=== PATIENT | male | born 1985 | race Caucasian/White ===

== ENCOUNTER 2017-03-31 02:12 | Emergency (ER) | payer MEDICAID ==
[2017-03-31 02:32] VITALS: BP 121/75
[2017-03-31] MEDS ORDERED: LIDOCAINE 1% 2 ML VIAL ONE (03:44)
[2017-03-31] MEDS ORDERED: BUPIVACAINE 0.5% PF 30 ML VIAL ONE (04:02)
--- NOTE | 2017-03-31 04:16 | ED Physician Documentation ---
PD HPI LOWER EXT INJURY - Stated complaint Stated Complaint: RT LEG LACERATION - Chief complaint Chief Complaint: Ext Problem - History obtained from History obtained from: Patient - History of Present Illness PD HPI LOW EXT INJURY LOCATION: Right, Lower leg Type of injury: Laceration Where injury occurred: Home Timing - onset: Today Timing - duration: Hours Timing - details: Abrupt onset, Still present Improved by: Rest, Immobilization Worsened by: Moving, Palpating Associated symptoms: No: Weakness, Numbness, Tingling Contributing factors: No: Anticoagulated Similar symptoms before: Has not had sx before Recently seen: Not recently seen - Additional information Additional information: 31-year-old male was using a machete today when he lacerated his right upper calf. He super glued this back together and then it broke open and spurted blood. The cut is now widely gaping. He is able to ambulate without any more difficulty than usual. He usually has some trouble with the right LE and a foot drop related to his disc disease. Review of Systems Constitutional: denies: Fever Nose: denies: Congestion Respiratory: denies: Dyspnea, Cough GI: denies: Nausea, Vomiting : denies: Dysuria, Frequency Skin: reports: Laceration (s). denies: Rash Musculoskeletal: denies: Neck pain, Back pain PD PAST MEDICAL HISTORY - Past Medical History : Retention Musculoskeletal: Fibromyalgia, Chronic back pain - Past Surgical History Past Surgical History: Yes Neuro: Other - Allergies Allergies/Adverse Reactions: Allergies Allergy/AdvReac Type Severity Reaction Status Date / Time cefaclor [From Ceclor] AdvReac Unknown Verified 08/30/15 18:03 sulfamethoxazole AdvReac Unknown Verified 08/30/15 18:03 [From Septra] trimethoprim [From Marra] AdvReac Unknown Verified 08/30/15 18:03 - Social History Does the pt smoke?: No Smoking Status: Former smoker Does the pt drink ETOH?: Yes Does the pt have substance abuse?: Yes - Immunizations Immunizations are current?: Yes - POLST Patient has POLST: No PD ED PE NORMAL - Vitals Vital signs reviewed: Yes (normal ) - General General: No acute distress, Well developed/nourished - HEENT HEENT: Atraumatic, PERRL, EOMI - Respiratory Respiratory: No respiratory distress - Back Back: No CVA TTP - Derm Derm: Normal color, Warm and dry, No rash - Extremities Extremities: No deformity, Other (There is a 3.5cm laceration over the right proximal medial tibia that involves deeper structures. The function of the patellar tendon is not affected. The lacreation does involve the medial aspect of the distal patellar tendon. ) - Neuro Neuro: No motor deficit, No sensory deficit - Psych Psych: Normal mood, Normal affect Results - Vitals Vitals: Vital Signs - 24 hr 03/31/17 02:27 Temperature 37.1 C Heart Rate 88 Respiratory 18 Rate Blood Pressure 121/75 O2 Saturation 97 Oxygen O2 Source Room air - Rads (name of study) R tib/fib Radiology: Prelim report reviewed (Impression: Suspect soft tissue injury. No bony abnormality.), EMP read indepedently, See rad report Procedures - Laceration (location) right leg Length in cm: 3.5 Wound type: Linear, Clean Neurovascular status: Sensory intact, Motor intact, Vascular intact Tendon involvement: Tendon Injury Anesthesia: Lidocaine 1%, Marcaine 0.5% Wound Preparation: Hibiclens, Irrigated copiously NS, Wound explored, To the base Skin layer closure: Nylon, Interrupted (horizontal matress), Size #-0 - enter number Other: Patient tolerated well, No complications, Neurovascular intact, Dressing applied Complexity: Simple PD MEDICAL DECISION MAKING - ED course Complexity details: reviewed old records, reviewed results, re-evaluated patient , considered differential, d/w patient ED course: 31-year-old male with PTSD that likes to avoid medicalInteractions has had a deep laceration to his medial proximal tibial area but does look like it involves the medial surface of the distal patellar tendon. The patellar tendon function is intact the laceration of the tendon is partial thickness and only a portion of the medial aspect. The patient's laceration is cleaned and sutured a x-ray of the leg is obtained to be certain this was not bone that had occurred finished and the x-ray was without evidence of bony involvement. The patient became impatient and left the emergency department prior to receiving instructions or final disposition. Departure - Departure Disposition: 01 Home, Self Care Clinical Impression: Leg laceration Qualifiers: Encounter type: initial encounter Laterality: right Qualified Code(s): S81.811A - Laceration without foreign body, right lower leg, initial encounter Condition: Stable Instructions: ED Laceration Ext Sutr Stap Tape Follow-Up: [facility] [Provider Group]
--- NOTE | 2017-03-31 04:52 | XRAY Preliminary Report ---
Exam: XR Tib/Fib RT IMPRESSION: Suspect soft tissue injury. No bony abnormality. [facility] SITE ID: [id number]
--- NOTE | 2017-03-31 04:54 | XRAY Report ---
EXAM: RIGHT TIBIA/FIBULA RADIOGRAPHY EXAM DATE: 03/31/2017 04:36 AM. CLINICAL HISTORY: Charla injury to the lower extremity yesterday afternoon. COMPARISON: None. TECHNIQUE: 2 views. FINDINGS: Bones: No fracture or bone lesion. Joints: The visualized knee and ankle joints are normal. No effusions. Soft Tissues: Suspect small soft tissue laceration over the medial anterior aspect of the lower extre mity, near the tibial tuberosity. IMPRESSION: Suspect soft tissue injury. No bony abnormality. [facility] Referring Provider Line: [phone] SITE ID: [id number]
== END 2017-03-31 06:02 | disposition home or self-care (01) ==
LOC: ED 02:12
DX: S81.811A Laceration without foreign body, right lower leg, initial encounter (principal); W45.8XXA Other foreign body or object entering through skin, initial encounter; Y93.89 Activity, other specified; Y92.009 Unspecified place in unspecified non-institutional (private) residence as the place of occurrence of the external cause; Z87.891 Personal history of nicotine dependence
CPT/HCPCS: 12002; 99283

== ENCOUNTER 2018-01-08 01:54 | Emergency (ER) | payer MEDICAID ==
[2018-01-08 02:09] VITALS: BP 119/70
--- NOTE | 2018-01-08 03:23 | ED Physician Documentation ---
PD HPI LOWER EXT INJURY - Stated complaint Stated Complaint: L FOOT INJURY - Chief complaint Chief Complaint: Ext Problem - History obtained from History obtained from: Patient - History of Present Illness PD HPI LOW EXT INJURY LOCATION: Left, Foot Type of injury: Blunt / blow Where injury occurred: Home Timing - onset: Yesterday Timing - details: Abrupt onset Worsened by: Moving, Palpating Associated symptoms: Swelling, Discolored Similar symptoms before: Has not had sx before Recently seen: Not recently seen - Additional information Additional information: Patient is a 32 year old male with no significant past medical history who is presenting to the emergency department for foot pain after dropping the bottom piece of a lawnmower on his foot when he was trying to fix it. Patient states that the pain never got better so he came to the emergency department for evaluation. Review of Systems Ten Systems: 10 systems reviewed and negative Musculoskeletal: reports: Extremity pain PD PAST MEDICAL HISTORY - Past Medical History Past Medical History: Yes : Retention Musculoskeletal: Fibromyalgia, Chronic back pain - Past Surgical History Past Surgical History: Yes Neuro: Other - Present Medications Home Medications: Ambulatory Orders Medication Instructions Recorded Confirmed No Known Home Medications [No 01/08/18 01/08/18 Known Home Medications] - Allergies Allergies/Adverse Reactions: Allergies Allergy/AdvReac Type Severity Reaction Status Date / Time cefaclor [From Ceclor] AdvReac Unknown Verified 01/08/18 02:10 sulfamethoxazole AdvReac Unknown Verified 01/08/18 02:10 [From Septra] trimethoprim [From ] AdvReac Unknown Verified 01/08/18 02:10 - Social History Does the pt smoke?: No Smoking Status: Never smoker Does the pt drink ETOH?: Yes Does the pt have substance abuse?: Yes - Immunizations Immunizations are current?: Yes - POLST Patient has POLST: No PD ED PE NORMAL - Vitals Vital signs reviewed: Yes - General General: Alert and oriented X 3, No acute distress - HEENT HEENT: Atraumatic - Cardiac Cardiac: RRR, Strong equal pulses - Respiratory Respiratory: No respiratory distress - Abdomen Abdomen: Non distended - Neuro Neuro: Alert and oriented X 3, No motor deficit, Normal speech PD ED PE EXPANDED - Extremities Extremities: Left foot (tenderness and swelling over 2nd and 3rd metatarsals) Results - Vitals Vitals: Vital Signs - 24 hr 01/08/18 02:06 Temperature 37 C Heart Rate 62 Respiratory 16 Rate Blood Pressure 119/70 O2 Saturation 98 Oxygen O2 Source Room air - Rads (name of study) left foot Radiology: Final report received, EMP read contemporaneously (no acute fracture or dislocation) PD MEDICAL DECISION MAKING - ED course Complexity details: reviewed old records, reviewed results, re-evaluated patient , considered differential, d/w patient ED course: Patient was seen and examined at bedside. patient was sent for imaging. when patient returned the results were reviewed. there was no acute fracture or dislocation. patient required no further work up at this time and was stable for discharge with outpatient follow up. - Sepsis Event Vital Signs: Vital Signs - 24 hr 01/08/18 02:06 Temperature 37 C Heart Rate 62 Respiratory 16 Rate Blood Pressure 119/70 O2 Saturation 98 Oxygen O2 Source Room air Departure - Departure Disposition: 01 Home, Self Care Clinical Impression: Contusion of foot, left Condition: Good Instructions: ED Contusion Foot Follow-Up: primary,care provider [Other] Comments: Your diagnostics today were within normal limits. there is no acute fracture or dislocation. You can take motrin or tylenol as needed for pain. You should ice your foot at least 4 times a day. You should follow up with your doctor if symptoms persist for more that the next week. you may return to the emergency department at any time for new, worsening or uncontrollable symptoms.
--- NOTE | 2018-01-08 04:00 | XRAY Report ---
Procedure Date: 01/08/2018 Accession Number: [id number] / [id number] Procedure: XR - Foot 3 View LT CPT Code: FULL RESULT: EXAM: LEFT FOOT RADIOGRAPHY EXAM DATE: 01/08/2018 03:07 AM. CLINICAL HISTORY: Foot pain after injury. COMPARISON: None. TECHNIQUE: 3 views. FINDINGS: Bones: No fracture seen. Joints: No dislocation. Joint spaces appear intact. Soft Tissues: Soft tissue swelling. IMPRESSION: 1. No acute osseous abnormality seen. [facility]
== END 2018-01-08 04:07 | disposition home or self-care (01) ==
LOC: ED 01:54
DX: S90.32XA Contusion of left foot, initial encounter (principal); W20.8XXA Other cause of strike by thrown, projected or falling object, initial encounter; Y92.009 Unspecified place in unspecified non-institutional (private) residence as the place of occurrence of the external cause; M79.7 Fibromyalgia
CPT/HCPCS: 99282; 99283

== ENCOUNTER 2020-11-09 08:00 | Outpatient (CLI) | payer BC, MEDICAID | END 2020-11-09 23:59 | disposition home or self-care (01) | LOC: LAB.N 08:00 | PROVIDERS: ATTEND Nurse Practitioner | DX: B34.9 Viral infection, unspecified (principal); Z20.822 Contact with and (suspected) exposure to COVID-19 ==

== ENCOUNTER 2021-05-10 17:24 | Outpatient (CLI) | payer BC ==
--- NOTE | 2021-05-17 10:25 | XRAY Report ---
PROCEDURE: Ribs w/PA Chest RT INDICATIONS: CONTUSION OF THORAX, UNSPECIFIED TECHNIQUE: 3 views of the right ribs were acquired, along with a single view chest. COMPARISON: None FINDINGS: Surgical changes and devices: Epidural nerve stimulator with leads in the midthoracic spine. Bones and chest wall: No fractures or dislocations. No suspicious bony lesions. Overlying soft tis sues appear unremarkable. Lungs and pleura: No pleural effusions or pneumothorax. Lungs appear clear. Mediastinum: Mediastinal contours appear normal. Heart size is normal. IMPRESSION: 1. No visible displaced rib fractures. 2. No evidence of underlying chest trauma. Reviewed by: Kayla Koehler MD on 05/17/2021 10:24 AM PDT Approved by: Kayla Koehler MD on 05/17/2021 10:24 AM PDT Station ID: [id number]
== END 2021-05-10 23:59 | disposition home or self-care (01) ==
LOC: DI.N 17:24
PROVIDERS: ATTEND Nurse Practitioner
DX: S20.20XA Contusion of thorax, unspecified, initial encounter (principal)

== ENCOUNTER 2022-07-19 19:35 | Outpatient (CLI) | payer BC ==
--- NOTE | 2022-07-20 03:37 | XRAY Report ---
PROCEDURE: Hand 3 View RT INDICATIONS: HAND PAIN, RIGHT TECHNIQUE: 3 views of the hand acquired. COMPARISON: None. FINDINGS: Bones: There is an external radial sided splint slightly limiting evaluation of fine bony detail. No definite fractures or dislocations. No suspicious bony lesions. Soft tissues: No suspicious soft tissue calcifications. IMPRESSION: 1. No definite fracture or dislocation. Reviewed by: Edinson Swann MD on 07/20/2022 3:36 AM PST Approved by: Edinson Swann MD on 07/20/2022 3:36 AM PST Station ID: [id number]
== END 2022-07-19 19:36 | disposition home or self-care (01) ==
LOC: DI 19:35
PROVIDERS: ATTEND Family Medicine
DX: M79.641 Pain in right hand (principal)

== ENCOUNTER 2022-12-17 11:48 | Outpatient (CLI) | payer BC ==
--- NOTE | 2022-12-17 20:46 | Ultrasound Report ---
PROCEDURE: Testicle INDICATIONS: TESTICULAR PAIN TECHNIQUE: Real-time scanning was performed of the scrotum and testicles, with image documentation. Color and p ulse Doppler interrogation was performed of both testicles. COMPARISON: None. FINDINGS: Right: Testicle is normal in size at 2.4 x 1.7 x 3.0 cm, and homogenous in echotexture. Epididymis is normal in overall size and morphology. No varicoceles. Small right hydrocele. Overlying scrotal s kin is normal in thickness. Left: Testicle is normal in size at 3.3 x 1.8 x 2.4 cm, and homogeneous in echotexture. Epididymis is normal in overall size and morphology. No hydrocele or varicoceles. Overlying scrotal skin is no rmal in thickness. Doppler: Color and pulse Doppler demonstrate normal and symmetric arterial flow in both testicles. IMPRESSION: Small right hydrocele. Otherwise, normal sonographic evaluation of the bilateral testicles. Reviewed by: Herminio Schwartz MD on 12/17/2022 8:45 PM PDT Approved by: Herminio Schwartz MD on 12/17/2022 8:45 PM PDT Station ID: [id number]
== END 2022-12-17 11:49 | disposition home or self-care (01) ==
LOC: DI 11:48
PROVIDERS: ATTEND Registered Nurse
DX: N50.812 Left testicular pain (principal); N43.3 Hydrocele, unspecified

== ENCOUNTER 2022-12-24 16:48 | Outpatient (CLI) | payer BC ==
[2022-12-24 20:16] LABS: BASOPHILS % (AUTO) 0.4 %; EOSINOPHILS # (AUTO) 0.1 10^3/uL (0.0-0.7); EOSINOPHILS % (AUTO) 1.3 %; HGB - HEMOGLOBIN 14.6 g/dL (14.0-18.0); LYMPHOCYTES # (AUTO) 2.3 10^3/uL (1.5-3.5); MEAN CORPUSCULAR HEMOGLOBIN 31.7 pg (27.0-31.0); MEAN CORPUSCULAR HGB CONC 34.8 g/dL (32.0-36.0); MEAN CORPUSCULAR VOLUME 91.1 fL (80.0-94.0); MEAN PLATELET VOLUME 9.3 fL (7.4-11.4); MONOCYTES # (AUTO) 0.6 10^3/uL (0.0-1.0); MONOCYTES % (AUTO) 6.9 %; NEUTROPHILS # (AUTO) 5.4 10^3/uL (1.5-6.6); PLT - PLATELET COUNT 326 10^3/uL (130-450); RED BLOOD COUNT 4.61 10^6/uL (4.70-6.10); WHITE BLOOD COUNT 8.4 x10^3/uL (4.8-10.8)
[2022-12-24 20:50] LABS: ALBUMIN/GLOBULIN RATIO 1.1 (1.0-2.2); ALKALINE PHOSPHATASE 34 IU/L (42-121); ALT ALANINE AMINOTRANSFERASE 46 IU/L (10-60); AST ASPARTATE AMINOTRANSFERASE 23 IU/L (10-42); BILIRUBIN,TOTAL 0.6 mg/dL (0.2-1.0); BUN - BLOOD UREA NITROGEN 16 mg/dL (6-20); CALCIUM 8.8 mg/dL (8.5-10.3); CARBON DIOXIDE - CO2 29 mmol/L (21-32); CHLORIDE 106 mmol/L (101-111); CHOL/HDL RATIO 4.2 (<5.0); CHOLESTEROL 211 mg/dL; CREATININE 0.8 mg/dL (0.6-1.2); GFR - MDRD 109 (>89); GLUCOSE 98 mg/dL (70-100); HDL CHOLESTEROL 50 mg/dL; LDL CHOLESTEROL,CALCULATED 128 mg/dL; LDL/HDL RATIO 2.6 (<3.6); SODIUM 141 mmol/L (135-145); TOTAL PROTEIN 7.5 g/dL (6.7-8.2); TRIGLYCERIDES 167 mg/dL; VLDL CHOLESTEROL 33 mg/dL
[2022-12-24 21:01] LABS: THYROID STIMULATING HORMONE 0.55 uIU/mL (0.34-5.60)
== END 2022-12-24 16:49 | disposition home or self-care (01) ==
LOC: LAB.N 16:48
PROVIDERS: ATTEND Registered Nurse
DX: Z79.899 Other long term (current) drug therapy (principal); Z13.220 Encounter for screening for lipoid disorders; Z12.5 Encounter for screening for malignant neoplasm of prostate; Z13.29 Encounter for screening for other suspected endocrine disorder; R36.1 Hematospermia; R32 Unspecified urinary incontinence
CPT/HCPCS: 36415; 80053; 80061; 81001; 83721; 84153; 84443; 85025; 87086

== ENCOUNTER 2023-02-05 18:36 | Outpatient (CLI) | payer BC ==
--- NOTE | 2023-02-06 09:35 | Ultrasound Report ---
PROCEDURE: Retroperitoneal INDICATIONS: HIST OF KIDNEY STONES TECHNIQUE: Real-time scanning was performed of the retroperitoneal organs, with image documentation. COMPARISON: None. FINDINGS: Kidneys: Kidneys are normal in size. Right kidney measures 10.2 cm long; left kidney measures 10.1 cm long. Right renal cortical thickness is 1.6 cm; left renal cortical thickness is 1.3 cm. No ba d masses, hydronephrosis, or nephrolithiasis. Bladder: Pre-void bladder volume is 95 mL. Post-void residual is 36 mL. Pre-void images demonstrat e no intraluminal masses or stones. On pre-void images, both ureteral jets are noted with color Dopp ler interrogation. (Of note, ureteral jets may not be detectable in up to 25% of cases due to insuff icient differences in specific gravity between ureteral and bladder urine). Miscellaneous: No free abdominal fluid. IMPRESSION: No nephrolithiasis. Reviewed by: Keith Winn on 02/06/2023 9:34 AM PDT Approved by: Keith Winn on 02/06/2023 9:34 AM PDT Station ID: [id number]
== END 2023-02-05 18:37 | disposition home or self-care (01) ==
LOC: DI 18:36
PROVIDERS: ATTEND Urology
DX: Z87.442 Personal history of urinary calculi (principal)

== ENCOUNTER 2023-06-28 12:34 | Outpatient (CLI) | payer BC | END 2023-06-28 12:35 | disposition critical access hospital (66) | LOC: EMS 12:34 | DX: Z04.6 Encounter for general psychiatric examination, requested by authority (principal); R45.851 Suicidal ideations; Z78.1 Physical restraint status | CPT/HCPCS: A0425; A0429 ==

== ENCOUNTER 2023-06-28 12:53 | Emergency (ER) | payer BC ==
--- NOTE | 2023-06-28 12:59 | ED Physician Documentation ---
PD HPI MHE - Stated complaint Stated Complaint: MHE - History obtained from History obtained from: Patient, EMS - Additional information Additional information: 38-year-old gentleman with recent spinal fusion brought in by ambulance with ROZ paperwork. Reportedly was spinning the barrel of his gun and saying he was going to kill himself. To me he is uncooperative and I am not able to obtain any history from him other than to deem that he disagrees with the report of events and he is not voluntary for hospitalization. PD PAST MEDICAL HISTORY - Past Medical History : Retention Musculoskeletal: Fibromyalgia, Chronic back pain - Past Surgical History Past Surgical History: Yes Neuro: Other - Present Medications Home Medications: Ambulatory Orders Medication Instructions Recorded Confirmed No Known Home Medications 01/08/18 01/08/18 - Allergies Allergies/Adverse Reactions: Allergies Allergy/AdvReac Type Severity Reaction Status Date / Time cefaclor [From Ceclor] AdvReac Unknown Verified 06/28/23 13:02 sulfamethoxazole AdvReac Unknown Verified 06/28/23 13:02 [From Septra] trimethoprim [From Septra] AdvReac Unknown Verified 06/28/23 13:02 - Social History Does the pt smoke?: No Smoking Status: Never smoker Does the pt drink ETOH?: Yes Does the pt have substance abuse?: Yes - Immunizations Immunizations are current?: Yes - POLST Patient has POLST: No PD ED PE NORMAL - Vitals Vital signs reviewed: Yes - General General: No acute distress, Well developed/nourished - Cardiac Cardiac: RRR, No murmur - Respiratory Respiratory: No respiratory distress - Abdomen Abdomen: Non tender - Derm Derm: Normal color, Warm and dry - Extremities Extremities: No edema, No calf tenderness / cord - Neuro Neuro: Alert and oriented X 3, Normal speech - Psych Psych: Other (Angry, slightly agitated) Results - Vitals Vitals: Vital Signs - 24 hr 06/28/23 13:02 Temperature 36.6 C Heart Rate 106 H Respiratory 18 Rate Blood Pressure 141/94 H O2 Saturation 100 Oxygen O2 Source Room air PD Medical Decision Making - ED course ED course: 38-year-old gentleman is agitated and reportedly suicidal but refused to talk to me. He remained agitated throughout his ED stay and multiple attempts at de- escalation were trialed but eventually eloped out the doors at approximately 2:25 PM. Elopement policy was reviewed and implemented. Specifically: 1. Code Ana was called overhead 2. She notified hospital security 3. We called 911. 4. I asked the nurse to notify the [facility] and our nurse bindery manager was here 5. An event report was filed by the health community administrator He apparently did not have a phone with him. Departure - Departure Disposition: ED Elope Clinical Impression: Involuntary commitment
[2023-06-28 13:17] VITALS: BP 141/94; O2SAT 100
== END 2023-06-28 14:24 | disposition left against medical advice (07) ==
LOC: EDUNIT# → ED 12:53
DX: R45.851 Suicidal ideations (principal); Z53.29 Procedure and treatment not carried out because of patient's decision for other reasons
CPT/HCPCS: 80053; 80307; 80320; 80329; 82550; 83690; 83735; 84443; 85025; 99282; 99283